=== PATIENT | female | born 1985 | race Caucasian/White ===

== ENCOUNTER 2016-10-05 17:22 | Emergency (ER) | payer OTHER ==
[~2016-10-05] VITALS: Ht 152.4 cm; Wt 64.0 kg
--- NOTE | 2016-10-05 18:47 | ED GENERAL ADULT ---
History of Present Illness General Chief Complaint: General Adult Stated Complaint: PANIC ATTACK Source: patient Exam Limitations: no limitations Vital Signs & Intake/Output Vital Signs & Intake/Output Vital Signs Date Time Temp Pulse Resp B/P Pulse O2 O2 Flow FiO2 Ox Delivery Rate 10/05 1729 97.7 72 16 133/87 98 Room Air Allergies Coded Allergies: No Known Allergies (10/05/16) Triage Note: PT STATES SHE IS HAVING A PANIC ATTACK STATES SHE CAN NORMALY CALM HERSELF DOWN BUT NOT TODAY. PT STATES SHE TAKES PAXIL 20 MG DAILY AND LORAZAPAM PRN STATES SHE TOOK 2 AT 1300 BUT NOT HELPING. Triage Nurses Notes Reviewed? yes : No Patient currently breastfeeds: No HPI: Patient is a 30-year-old female presents complaining of anxiety and panic attack. Patient reports that yesterday evening she began feeling anxious, could not sleep throughout the night felt a heart racing sensation and when she tried to sleep that her mind racing. Symptoms continued throughout today. Patient took a dose of lorazepam 0.5 mg at 4 PM today and symptoms of started to improve. Patient reports that she has had panic attacks previously that usually do not last this long. Patient has recently changed her diet and started exercising, is unsure if this is contributing to her anxiety. Patient takes Paxil 20 mg and lorazepam 0.5 mg as needed. Patient reports that symptoms were severe currently are moderate. Denies suicidal ideation. (JOHANN HI) Past History Travel History Traveled to [place] past 21 day No Medical History Any Pertinent Medical History? see below for history Psychiatric: PANIC ATTACK Surgical History Surgical History: non-contributory Psychosocial History What is your primary language [place] Tobacco Use: Never used ETOH Use: occasional use Illicit Drug Use: denies illicit drug use Family History Hx Contributory? No (JOHANN HI) Review of Systems Review of Systems Constitutional: Denies: chills, fever. EENTM: Reports: no symptoms. Respiratory: Denies: cough, short of breath. Cardiovascular: Reports: palpitations. Denies: chest pain. GI: Denies: abdominal pain, vomiting. Genitourinary: Reports: no symptoms. Musculoskeletal: Reports: no symptoms. Skin: Reports: no symptoms. Neurological/Psychological: Reports: see HPI. Hematologic/Endocrine: Reports: no symptoms. Immunologic/Allergic: Reports: no symptoms. (JOHANN HI) Physical Exam Physical Exam General Appearance: well developed/nourished, alert, awake Head: atraumatic, normal appearance Eyes: Bilateral: normal appearance, PERRL, EOMI. Ears, Nose, Throat: hearing grossly normal Neck: normal inspection, supple, full range of motion Respiratory: normal breath sounds, no respiratory distress, lungs clear Cardiovascular: regular rate/rhythm Back: normal range of motion Extremities: normal inspection, normal range of motion Neurologic/Psych: awake, alert, oriented x 3, normal gait, normal mood/affect, no suicidal or homicidal ideation. No apparent hallucinations. Skin: intact, normal color, cyanosis Core Measures ACS in differential dx? No CVA/TIA Diagnosis: No Severe Sepsis Present: No Septic Shock Present: No (JOHANN HI) Progress Differential Diagnoses I considered the following diagnoses in my evaluation of the patient: Anxiety, depression, panic disorder, thyroid disorder Plan of Care: No suicidal or homicidal ideation. Symptoms gradually improving since patient took her dose of lorazepam at 4 PM today. Does not appear to require crisis consultation. Discussed with patient providing her a list of counseling resources and having her follow-up with her primary care doctor for further evaluation. Patient is agreeable to this plan. Initial ED EKG: none (JOHANN HI) Departure Departure Time of Disposition: 1899 Disposition: HOME OR SELF CARE Condition: Stable Clinical Impression Primary Impression: Panic attack Referrals: BRIDGET العلي,LETICIA Worthington (PCP/Family) Additional Instructions: Continue your paxil as previously directed. Take your Lorazepam as directed. If after 30 minutes you have not had any improvement then you may take an additional dose of 0.5mg of lorazepam. This may make you drowsy. Follow up with your primary doctor for further evaluation, call in the morning for appointment. Also provided is a list of counseling resources that you may use. Departure Forms: Customer Survey General Discharge Information (JOHANN HI) PA/[employer] Co-Sign Statement Statement: ED Attending supervision documentation- [] I saw and evaluated the patient. I have also reviewed all the pertinent lab results and diagnostic results. I agree with the findings and the plan of care as documented in the PA's/[employer]'s documentation. x I have reviewed the ED Record and agree with the PA's/[employer]'s documentation. [] Additions or exceptions (if any) to the PAs/[employer]'s note and plan are summarized below: [] (FRANKI العلي,LIUDMILA) Critical Care Note Critical Care Note Critical Care Time: non-applicable (DARLYN ARGUETA,JOHANN)
[2016-10-05 19:08] VITALS: BP 122/70
== END 2016-10-05 19:09 ==
LOC: ERH 17:22
DX: F41.0 Panic disorder [episodic paroxysmal anxiety] (principal)